=== PATIENT | female | born 1945 | race Caucasian/White ===

== ENCOUNTER → 2016-09-19 | Outpatient (CLI) | payer OTHER | LOC: BMCIMAGING 11:23 | PROVIDERS: ATTEND Family Medicine | DX: M79.89 Other specified soft tissue disorders (principal); Z86.711 Personal history of pulmonary embolism ==

== ENCOUNTER → 2016-09-29 | Outpatient (CLI) | payer OTHER | LOC: BMCIMAGING 16:52 | PROVIDERS: ATTEND Physician Assistant Medical | DX: J96.90 Respiratory failure, unspecified, unspecified whether with hypoxia or hypercapnia (principal); Z86.711 Personal history of pulmonary embolism ==

== ENCOUNTER → 2016-10-27 | Outpatient (CLI) | payer OTHER | LOC: FIMAGING 10:30 | PROVIDERS: ATTEND Allergy & Immunology Allergy | DX: J96.21 Acute and chronic respiratory failure with hypoxia (principal); J84.10 Pulmonary fibrosis, unspecified ==

== ENCOUNTER → 2016-11-27 | Outpatient (CLI) | payer OTHER | LOC: BHFA 14:30 | PROVIDERS: ATTEND Internal Medicine Cardiovascular Disease | DX: Z72.0 Tobacco use (principal) ==